=== PATIENT | female | born 1955 | race Caucasian/White ===

== ENCOUNTER 2017-06-27 11:58 | Emergency (ER) | payer MEDICAID ==
[2017-06-27] MEDS: ACETAMINOPHEN 500 MG TAB PO (12:36)
== END 2017-06-27 14:41 | disposition home or self-care (01) ==
LOC: FTE 11:58
DX: J10.1 Influenza due to other identified influenza virus with other respiratory manifestations (principal); I10 Essential (primary) hypertension
CPT/HCPCS: 71045; 87400; 99284-25